=== PATIENT | male | born 1955 | race Caucasian/White ===

== ENCOUNTER 2018-11-28 14:02 | Emergency (ER) | payer BC ==
[~2018-11-28] VITALS: Ht 172.7 cm; Wt 113.4 kg
[2018-11-28] MEDS ORDERED: TRAZODONE HCL50 MG (14:37)
[2018-11-28] MEDS ORDERED: [UNRECOGNIZED DRUG - OTHER] PO (14:38)
[2018-11-28] MEDS ORDERED: LIPITOR40 MG PO (14:39)
[2018-11-28] MEDS ORDERED: ATENOLOL50 MG PO (14:39)
[2018-11-28] MEDS ORDERED: LISINOPRIL5 MG PO (14:39)
[2018-11-28] MEDS ORDERED: EDARBYCLOR 40-1 EAC1 (14:40)
[2018-11-28] MEDS ORDERED: NORVASC10 MG PO (14:40)
[2018-11-28] MEDS ORDERED: ZITHROMAX500 MG PO (17:23)
[2018-11-28] MEDS ORDERED: FLONASE ALLERG9.9 ML NASAL (17:23)
[2018-11-28] MEDS ORDERED: MEDROLPACK PO (17:23)
== END 2018-11-28 17:43 | disposition home or self-care (01) ==
LOC: ER 14:02
DX: H66.92 Otitis media, unspecified, left ear (principal)

== ENCOUNTER 2018-12-13 07:44 | Emergency (ER) | payer BC ==
[~2018-12-13] VITALS: Ht 172.7 cm; Wt 113.4 kg
[~2018-12-13 07:44] MED LIST: ATENOLOL50 MG PO; EDARBYCLOR 40-1 EAC1; FLONASE ALLERG9.9 ML NASAL; LIPITOR40 MG PO; LISINOPRIL5 MG PO; MEDROLPACK PO; NORVASC10 MG PO; TRAZODONE HCL50 MG; ZITHROMAX500 MG PO; [UNRECOGNIZED DRUG - OTHER] PO
[2018-12-13] MEDS ORDERED: AMPHETAMINE SAL30 MG (07:53)
[2018-12-13] MEDS ORDERED: TRAZODONE HCL50 MG (07:53)
[2018-12-13] MEDS ORDERED: ATENOLOL50 MG (07:54)
[2018-12-13] MEDS ORDERED: ATORVASTATIN CA40 MG (07:54)
[2018-12-13] MEDS ORDERED: LISINOPRIL5 MG (07:54)
[2018-12-13] MEDS ORDERED: AMOX-CLAV 875-1 EACH PO (08:22)
== END 2018-12-13 08:34 | disposition home or self-care (01) ==
LOC: ER 07:44
DX: H66.92 Otitis media, unspecified, left ear (principal)